=== PATIENT | female | born 1985 | race African-American/Black ===

== ENCOUNTER 2017-01-03 22:05 | Emergency (ER) | payer OTHER ==
[~2017-01-03] VITALS: Ht 157.5 cm; Wt 114.3 kg
[~2017-01-03 22:05] MED LIST: DICLEGIS DR 101 EACH PO; IBUPROFEN 600600 M1 PO; TRINATE TABLET1 TAB
[2017-01-03 22:26] VITALS: BP 142/51
== END 2017-01-03 23:02 | disposition home or self-care (01) ==
LOC: ER 22:05
DX: S61.215A Laceration without foreign body of left ring finger without damage to nail, initial encounter (principal); Z23 Encounter for immunization; W45.8XXA Other foreign body or object entering through skin, initial encounter; Y93.89 Activity, other specified; Y92.89 Other specified places as the place of occurrence of the external cause; Y99.9 Unspecified external cause status

== ENCOUNTER 2019-08-10 19:48 | Emergency (ER) | payer OTHER ==
[~2019-08-10] VITALS: Ht 157.5 cm; Wt 59.4 kg
[2019-08-10 19:50] VITALS: BP 137/70
[2019-08-10] MEDS ORDERED: DOXYCYCLINE 10100 MG PO (21:22)
== END 2019-08-10 21:40 | disposition home or self-care (01) ==
LOC: ER 19:48
DX: L03.115 Cellulitis of right lower limb (principal); J45.909 Unspecified asthma, uncomplicated

== ENCOUNTER 2019-09-22 09:10 | Emergency (ER) | payer OTHER ==
[~2019-09-22] VITALS: Ht 157.5 cm; Wt 102.1 kg
[~2019-09-22 09:10] MED LIST changes: +DOXYCYCLINE 10100 MG PO
[2019-09-22] MEDS ORDERED: BACTRIM DS TAB1 EACH PO (10:59)
[2019-09-22 11:30] VITALS: BP 115/72
== END 2019-09-22 11:36 | disposition home or self-care (01) ==
LOC: ER 09:10
DX: L02.411 Cutaneous abscess of right axilla (principal); L73.2 Hidradenitis suppurativa; J45.909 Unspecified asthma, uncomplicated